=== PATIENT | female | born 1950 | race Caucasian/White ===

== ENCOUNTER → 2019-10-11 13:37 | Outpatient (CLI) | payer MEDICARE, OTHER, SELFPAY ==
--- NOTE | 2019-10-11 | DI.ECHO.S_ITS ---
[facility] +---------+ : : [address] : [place] : : : : [id number] : : : : Phone: [phone]+ Echocardiogram Report + + :Name: TOMASZ MOJICA Study Date: 10/11/2019 Height: 61 in : :[facility] Weight: 204 lb : : Gender: Female BSA: 1.9 m2 : :: 1950 Age: 69 yrs BP: 152/88 mmHg: :Reason For Study: AFIB : :Ordering Physician: Matteo : :Rafael Performed By: Ruth Pagan : :Referring: MATTEO MARLEY : + + Interpretation Summary Left ventricular systolic function remains normal with an estimated ejection fraction of 60 to 65% without any focal wall motion abnormality. There continues to be borderline concentric LVH which is unchanged from the previous study and with probable normal diastolic function. There has been no significant change since the previous exam. The right ventricle appears normal in size and function although appears slightly larger than on the previous study. Pulmonary artery pressure cannot be estimated because of the lack of a TR jet velocity but the CVP remains around 3 mmHg. Both atria are normal in size. 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 There is mild mitral regurgitation that is unchanged from the previous exam without any other significant valvular abnormality. The ascending aorta and aortic arch remain mildly enlarged but unchanged from the previous study. Procedure: A two-dimensional transthoracic echocardiogram with color flow and Doppler was performed. The study quality was technically adequate. Comparison is made with the echocardiogram of 01/06/2013. The patient was in normal sinus rhythm during the exam. Left Ventricle: The left ventricle is normal in size. There is borderline concentric left ventricular hypertrophy. This is unchanged compared to the previous study. The ejection fraction is estimated to be 60-65%. Left ventricular systolic function is normal without focal wall motion abnormalities. Diastolic parameters suggest probable normal left ventricular diastolic function and normal filling pressures. There has been no significant change since the previous study. Right Ventricle: The right ventricle is normal in size and function. This is slightly larger compared to the previous study. Atria: Both atria are normal in size. The interatrial septum is intact with no evidence for an atrial septal defect. The atrial septum is aneurysmal. There is no Doppler evidence for an interatrial shunt. Mitral Valve: There is mild mitral annular calcification. There is mild mitral regurgitation. This is unchanged compared to the previous study. Aortic Valve: The aortic valve is trileaflet. The aortic valve is slightly calcified. The aortic valve opens well. There is no aortic valve stenosis. No aortic regurgitation is present. Tricuspid Valve: The tricuspid valve is normal in structure and function. There is trace tricuspid regurgitation. Pulmonary artery pressures cannot be estimated because of the lack of a measurable TR jet velocity but the IVC suggests a CVP of around 3 mmHg. Pulmonic Valve: The pulmonic valve is normal in structure and function. There is trace pulmonic regurgitation. There is no other significant valvular heart disease. Great Vessels: The aortic root is normal size. The ascending aorta is mildly enlarged. The aortic arch is mildly enlarged. This is unchanged compared to the previous study. The IVC is of normal diameter and collapses greater than 50% with a sniff. This suggests a low right atrial pressure of 3 mm Hg. Pericardium/ Pleura There is no pericardial effusion. There is no pleural effusion. MMode/2D Measurements & Calculations LVIDd: 4.5 cm LVOT diam: 1.9 cm LVIDs: 2.8 cm Ao root diam: 3.1 cm FS: 38.2 % asc Aorta Diam: 3.5 cm EPSS: 0.87 cm Ao Arch Diam (Prox Trans): 3.1 cm IVSd: 1.1 cm LVPWd: 0.81 cm LV jasso. diameter/BSA (cm/m^2): 2.3 LV sys. diameter/BSA (cm/m^2): 1.4 LA A2 area: 21.1 cm2 RA long axis: 5.3 cm LA A4 area: 14.2 cm2 RA area: 15.8 cm2 LA length (vol): 5.1 cm RA vol: 40.5 ml LA vol: 50.3 ml RA : 21.3 ml/m2 LA vol index: 26.4 ml/m2 IVC diam: 1.6 cm RVD1 (basal): 3.3 cm TAPSE: 2.6 cm Doppler Measurements & Calculations Ao V2 max: 112.3 cm/sec LVOT Max Gabriel: 98.7 cm/sec Ao V2 mean: 70.0 cm/sec LV V1 max P.9 mmHg Ao max P.0 mmHg LV V1 VTI: 21.7 cm Ao mean P.3 mmHg JUAN(I,D): 2.6 cm2 Ao V2 VTI: 22.8 cm JUAN(V,D): 2.4 cm2 sev ratio: 0.95 JUAN indexed to BSA (cm^2/m^2): 1.4 MV E max gabriel: 65.2 cm/sec PA V2 max: 95.3 cm/sec MV A max gabriel: 80.3 cm/sec PA V2 mean: 63.6 cm/sec MV E/A: 0.81 PA mean P.9 mmHg Med Peak E' Gabriel: 6.8 cm/sec E/E' med: 9.5 Lat Peak E' Gabriel: 10.7 cm/sec E/E' lat: 6.1 E/e' average: 7.8 MV dec time: 0.25 sec SV(LVOT): 60.4 ml Reading Physician:CITLALLI
== END ==
PROVIDERS: Family Provider Internal Medicine; PCP Internal Medicine; Referring Provider Specialist; Visit Provider Specialist
DX: I34.0 Nonrheumatic mitral (valve) insufficiency (principal); I48.0 Paroxysmal atrial fibrillation; I77.89 Other specified disorders of arteries and arterioles
CPT/HCPCS: 93306

== ENCOUNTER → 2024-06-07 08:48 | Outpatient (CLI) | payer MEDICARE, OTHER, SELFPAY ==
--- NOTE | 2024-06-07 | DI.ECHO.S_ITS ---
[facility]---------+ [facility] : : [address] : : [place] : : [id number] : : Phone: [phone] Echocardiogram Report + + :Name: TOMASZ MOJICA Study Date: 06/07/2024 Height: 59 in : :[facility] ReadingLocation: Weight: 199 lb : : Gender: Female BSA: 1.8 m2 : :: 1950 Age: 74 yrs BP: 141/89 mmHg: :Reason For Study: DYSPNEA ON EXERTION : :Ordering Physician: DONELL, : :MATTEO Performed By: Ruth Pagan : :Referring: MATTEO MARLEY : + + Interpretation Summary Left ventricular size and systolic function remains normal with an estimated ejection fraction of 55 to 65% with considerable [id number] variability because of atrial fibrillation and is otherwise unchanged from the previous exam. Diastolic function cannot be accurately assessed but there is no evidence for increased filling pressures and with a are likely unchanged from the previous exam. The right ventricle remains normal in size and systolic function and is unchanged. Right ventricular systolic pressure cannot be estimated but CVP is likely around 3 mmHg. There is moderate left atrial enlargement that measures moderately larger compared to the previous study. There is mild to moderate mitral regurgitation that is slightly more prominent compared to the previous study but no other significant valvular abnormality. The ascending aorta is mildly enlarged at 3.8 cm compared to 3.5 cm previously. The aortic arch is at the upper limits of normal at 2.9 cm compared to 3.1 cm previously. The patient was in atrial fibrillation at 52 to 81 bpm which is new compared to the previous exam when she was in sinus rhythm. Procedure: A two-dimensional transthoracic echocardiogram with color flow and Doppler was performed. The study quality was technically adequate. Comparison is made with the echocardiogram of 10/11/2019. The patient was in atrial fibrillation with heart rates between 52-81 bpm during the exam. This is new compared to the previous study. Left Ventricle: The left ventricle is normal in size and wall thickness. The estimated left ventricular end diastolic volume is 51 ml. Left ventricular systolic function appears normal without focal wall motion abnormalities. Left ventricular ejection fraction is estimated to be 55 to 65% with pspu-[id number] variability. This is unchanged compared to the previous study. Diastolic function could not be accurately assessed due to atrial fibrillation. Filling pressures are likely normal. This is unchanged compared to the previous study. Right Ventricle: The right ventricle is normal in size and function. This is unchanged compared to the previous study. Atria: The left atrium is moderately dilated. The left atrium has significantly increased in size since the prior echo exam. Right atrial size is normal. There is no Doppler evidence for an interatrial shunt. Mitral Valve: There is mild mitral annular calcification. The mitral valve leaflets appear mildly thickened, but open well. There is a flat closure plane of the the mitral valve leaflets. There is mild to moderate mitral regurgitation. This is slightly more prominent compared to the previous study. Aortic Valve: The aortic valve is trileaflet. The aortic valve is slightly calcified. The aortic valve opens well. There is no aortic valve stenosis. No aortic regurgitation is present. Tricuspid Valve: The tricuspid valve leaflets are thin and pliable. There is trace tricuspid regurgitation. Pulmonary artery pressures cannot be estimated because of the lack of a measurable TR jet velocity but the IVC suggests a CVP of around 3 mmHg. Pulmonic Valve: The pulmonic valve leaflets are thin and pliable; valve motion is normal. There is no other significant valvular heart disease. Great Vessels: The aortic root is normal size. The ascending aorta is mildly enlarged. This is slightly larger compared to the previous study. The aortic arch is at the upper limits of normal in size. This is unchanged compared to the previous study. The IVC is of normal diameter and collapses greater than 50% with a sniff. This suggests a low right atrial pressure of 3 mm Hg. Pericardium/ Pleura There is no pericardial effusion. There is no pleural effusion. MMode/2D Measurements & Calculations LVIDd: 4.2 cm LVOT diam: 2.0 cm LVIDs: 3.0 cm Ao root diam: 2.8 cm FS: 28.8 % asc Aorta Diam: 3.8 cm EPSS: 0.53 cm Ao Arch Diam (Prox Trans): 2.9 cm IVSd: 0.98 cm LVPWd: 1.1 cm LV jasso. diameter/BSA (cm/m^2): 2.3 LV sys. diameter/BSA (cm/m^2): 1.6 LA A2 area: 28.0 cm2 RA long axis: 6.2 cm LA A4 area: 22.6 cm2 RA area: 19.2 cm2 LA length (vol): 6.2 cm RA vol: 50.9 ml LA vol: 86.5 ml RA : 27.7 ml/m2 LA vol index: 47.0 ml/m2 IVC diam: 1.9 cm RVD1 (basal): 3.6 cm RVD2 (mid): 2.7 cm TAPSE: 1.6 cm Doppler Measurements & Calculations Ao V2 max: 151.9 cm/sec LVOT Max Gabriel: 84.2 cm/sec Ao V2 mean: 109.6 cm/sec LV V1 max P.8 mmHg Ao max P.2 mmHg LV V1 VTI: 17.1 cm Ao mean P.3 mmHg JUAN(I,D): 1.7 cm2 Ao V2 VTI: 33.5 cm JUAN(V,D): 1.8 cm2 sev ratio: 0.51 JUAN indexed to BSA (cm^2/m^2): 0.91 MV E max gabriel: 107.5 cm/sec TR max gabriel: 248.0 cm/sec MV A max gabriel: 0.71 cm/sec TR max P.6 mmHg MV E/A: 152.2 Med Peak E' Gabriel: 12.7 cm/sec E/E' med: 8.5 Lat Peak E' Gabriel: 14.9 cm/sec E/E' lat: 7.2 E/e' average: 7.8 MV dec time: 0.17 sec SV(LVOT): 56.0 ml Reading Physician:[id number] PM
[2024-06-07 09:23] LABS: Add Manual Diff / Slide Review NO; Basophils Absolute Auto 100 /uL (0-100); Basophils Percent Auto 1.3 % (0-2); Eosinophils Absolute Auto 100 /uL (0-450); Eosinophils Percent Auto 1.5 % (2-4); Hematocrit 42.5 % (36-46); Hemoglobin 14.2 g/dL (12.0-16.0); Lymphocytes Absolute Auto 1600 /uL (1100-4500); Lymphocytes Percent Auto 32.5 % (25-40); Mean Corpuscular HGB Conc 33.4 % (30-36); Mean Corpuscular Hemoglobin 30.6 PG (26-34); Mean Corpuscular Volume 91.4 fL (80-100); Monocytes Absolute Auto 400 /uL (0-900); Monocytes Percent Auto 7.1 % (3-14); Neutrophils Absolute Auto 2900 /uL (1500-7000); Neutrophils Percent Auto 57.6 % (50-75); Platelet Count 225 X10^3/uL (150-400); Red Blood Cell Count 4.65 X10^6/uL (4.0-5.2); Red Cell Distribution Width 13.1 % (11.6-14.8)
[2024-06-07 09:51] LABS: Alanine Aminotransferase 23 IU/L (<35); Albumin 4.6 g/dL (3.5-5.0); Albumin Globulin Ratio 1.9 (1.0-2.8); Alkaline Phosphatase 51 U/L (38-126); Aspartate Aminotransferase 28 IU/L (14-36); BUN Creatinine Ratio 17.1 (6-22); Bilirubin Total 0.7 mg/dL (0.2-1.3); Blood Urea Nitrogen 14 mg/dL (7-17); Calcium 9.8 mg/dL (8.4-10.2); Carbon Dioxide 27 mmol/L (22-32); Chloride 105 mmol/L (98-107); Estimated Glomerular Filt Rate > 60 mL/min (>60); Globulin 2.4 g/dL (1.7-4.1); Glucose 112 mg/dL (80-110); HEMOLYSIS < 15 (0-50); Potassium 4.5 mmol/L (3.4-5.1); Sodium 139 mmol/L (137-145)
== END ==
PROVIDERS: Family Provider Internal Medicine; PCP Physician Assistant Medical; Referring Provider Specialist; Visit Provider Specialist
DX: I34.0 Nonrheumatic mitral (valve) insufficiency (principal); I34.81 Nonrheumatic mitral (valve) annulus calcification; I48.19 Other persistent atrial fibrillation; R06.09 Other forms of dyspnea; R53.82 Chronic fatigue, unspecified; I77.89 Other specified disorders of arteries and arterioles
CPT/HCPCS: 36415; 80053; 83735; 85025; 93306